=== PATIENT | female | born 1970 | race Caucasian/White ===

== ENCOUNTER 2016-08-18 14:14 | Emergency (ER) | payer SELFPAY ==
[~2016-08-18 14:14] MED LIST: ALBUTEROL17 GM; HYDROCODON-ACE1 EA16 PO; IBUPROFEN200 M2 PO
[2016-08-18] MEDS ORDERED: VIMOVO DR 500-1 EAC1 PO (14:21)
[2016-08-18] MEDS ORDERED: KEFLEX500 M4 PO (14:47)
== END 2016-08-18 15:02 ==
LOC: EDMED 14:14
DX: S61.011A Laceration without foreign body of right thumb without damage to nail, initial encounter (principal); Z23 Encounter for immunization; W26.8XXA Contact with other sharp object(s), not elsewhere classified, initial encounter; Y92.019 Unspecified place in single-family (private) house as the place of occurrence of the external cause; Y99.8 Other external cause status